=== PATIENT | female | born 1975 | race Caucasian/White ===

== ENCOUNTER → 2016-10-30 | Emergency (ER) | payer OTHER ==
[2016-10-30 16:39] VITALS: BP 125/65; PULSE 88; TEMP 98; BMI 28.9
--- NOTE | 2016-10-30 17:11 | PDOC ---
History of Present Illness - General Chief Complaint: Vaginal Sxs Stated Complaint: VAGINAL DISCHARGE/19 WKS Time Seen by Provider: 10/30/16 16:48 History Source: Patient Exam Limitations: No Limitations - History of Present Illness Initial Comments: CHIEF COMPLAINT: 41 y/o [id number], approximately 18 week female with LMP of 06/24/16 c/o clear vaginal discharge for the past 2 days. HISTORY OF PRESENT ILLNESS: The patient states that one time yesterday and once today she had some clear vaginal discharge. She states the discharge is not constant. She denies f/c, n/v/d, CP, SOB, abd pain, back pain, vaginal bleeding. Vital signs on arrival are within normal limits. HAND EXPANSION ENVELOPE MAKER is Dr. Bingham. REVIEW OF SYSTEMS: GENERAL/CONSTITUTIONAL: No fever/chills. No weakness. No weight change. HEAD, EYES, EARS, NOSE AND THROAT: No change in vision. No ear pain or discharge. No sore throat. CARDIOVASCULAR: No chest pain or shortness of breath. RESPIRATORY: No cough, wheezing, or hemoptysis. GASTROINTESTINAL: No abd pain, nausea, vomiting, diarrhea. +clear, watery vaginal discharge. GENITOURINARY: No dysuria, frequency, or change in urination. MUSCULOSKELETAL: No joint or muscle swelling or pain. No neck or back pain. SKIN: No rash or easy bruising. NEUROLOGIC: No headache, vertigo, loss of consciousness, or loss of sensation. PHYSICAL EXAM: GENERAL: The patient is awake, alert, and fully oriented, in no acute distress. She is well appearing, obviously gravid, in NAD or obvious discomfort. HEAD: Normal with no signs of trauma. ENT: Pupils equal, round and reactive to light, extraocular movements intact, sclera anicteric, conjunctiva clear. Neck supple. LUNGS: Clear to auscultation bilaterally. Normal excursion. No respiratory distress or use of accessory muscles. CV: RRR, S1/S2, no MRG. Cap refill < 2 sec. ABDOMEN: Soft, non-distended, non-tender even to deep palpation, no hepatomegaly or splenomegaly, no masses. VAGINAL: moderate amount of white/yellow watery vaginal discharge in vaginal vault. No foul odor. No blood noted. EXTREMITIES: Normal range of motion, no edema. NEUROLOGICAL: Normal speech, normal gait. CN II-XII grossly intact. PSYCH: Normal mood, normal affect. SKIN: Warm, dry, normal turgor, no rashes or lesions noted. Past History - Past Medical History Allergies/Adverse Reactions: Allergies Allergy/AdvReac Type Severity Reaction Status Date / Time No Known Drug Allergies Allergy Verified 10/30/16 16:39 Home Medications: Ambulatory Orders NK [No Known Home Medication] 10/30/16 - Surgical History Orthopedic Surgery: Yes (LEFT SHOULDER SX) - Reproductive History (#): 2 Para: 1 Cervical CA: No Dysfunctional Uterine Bleeding: No Ectopic : No Endometrial CA: No Polycystic Ovaries: No Tubal Ligation: No Spontaneous : 0 - Immunization History Td Vaccination: No TDAP Vaccination: No Immunization Up to Date: Yes - Psycho/Social/Smoking Cessation Hx Anxiety: No Suicidal Ideation: No Smoking History: Never smoked Have you smoked in the past 12 months: No Number of Cigarettes Smoked Daily: 0 Cigars Per Day: 0 Information on smoking cessation initiated: No Hx Alcohol Use: No Drug/Substance Use Hx: No Substance Use Type: None Hx Substance Use Treatment: No *Physical Exam - Vital Signs Last Vital Signs Temp Pulse Resp BP Pulse Ox 98 F 88 18 125/65 100 10/30/16 16:37 10/30/16 16:37 10/30/16 16:37 10/30/16 16:37 10/30/16 16:37 ED Treatment Course - LABORATORY CBC & Chemistry Diagram: 10/30/16 18:10 Medical Decision Making - Medical Decision Making A/P: 41 y/o afebrile female, approximately 18 weeks c/o vaginal discharge since yesterday. Plan is as follows: 1. Labs 2. UA 3. Transvaginal ultrasound to confirm cervical competency 4. Transabdominal ultrasound to confirm HR I am signing this patient out to my colleague: RILEY Harper In brief, this patient is being seen in the ED for a chief complaint of: vaginal discharge 18 weeks I have completed the initial assessment interview note and have ordered: labs, UA, transvaginal and abd ultrasound I have reviewed the following results: none Pending results are: all Please call the HAND EXPANSION ENVELOPE MAKER: Zachery Plan for disposition is as follows: Pending *DC/Admit/Observation/Transfer Diagnosis at time of Disposition: Vaginal discharge during in second trimester - Discharge Dispostion Condition at time of disposition: Good - Referrals Referrals: Eddy Bingham MD [Staff Physician] -
--- NOTE | 2016-10-30 18:04 | PDOC ---
*Physical Exam - Vital Signs Last Vital Signs Temp Pulse Resp BP Pulse Ox 98 F 88 18 125/65 100 10/30/16 16:37 10/30/16 16:37 10/30/16 16:37 10/30/16 16:37 10/30/16 16:37 ED Treatment Course - LABORATORY CBC & Chemistry Diagram: 10/30/16 18:10 Medical Decision Making - Medical Decision Making 10/30/16 18:04 Pt seen by the Advanced Practice Provider under my direct supervision Ancillary studies reviewed I agree with plan as outlined by the Advanced Practice Provider TAYLOR Hood *DC/Admit/Observation/Transfer Diagnosis at time of Disposition: Vaginal discharge during in second trimester - Discharge Dispostion Disposition: HOME Condition at time of disposition: Good - Referrals Referrals: Eddy Bingham MD [Staff Physician] - - Patient Instructions Printed Discharge Instructions: Managing Symptoms of Additional Instructions: follow up with your Event Designer as soon as possible return to the ER if vaginal bleeding > 2 pads/ hour, pelvic pain, loss of amniotic fluid, fever
[2016-10-30 18:30] LABS: BASOPHIL 0.3 % (0-2.0); EOSINOPHIL 1.1 % (0-4.5); MCH 31.6 pg (25.7-33.7); MEAN CELL VOLUME 92.8 fl (80-96); MEAN PLT VOLUME 9.3 fl (7.5-11.1); NEUTROPHILS 72.9 % (42.8-82.8); PLATELET COUNT 246 K/MM3 (134-434); RDW 13.8 % (11.6-15.6); WHITE BLOOD COUNT 10.9 K/mm3 (4.0-10.0)
--- NOTE | 2016-10-30 19:18 | PDOC ---
[id number] 100 10/30/16 16:37 10/30/16 16:37 10/30/16 16:37 10/30/16 16:37 10/30/16 16:37 - Physical Exam General Appearance: Yes: Appropriately Dressed Respiratory/Chest: positive: Lungs Clear, Normal Breath Sounds Cardiovascular: positive: Regular Rhythm, Regular Rate Gastrointestinal/Abdominal: positive: Normal Bowel Sounds, Soft ED Treatment Course - LABORATORY CBC & Chemistry Diagram: 10/30/16 18:10 - ADDITIONAL ORDERS Additional order review: 10/30/16 18:10 RBC 3.64 MCV 92.8 MCHC 34.0 RDW 13.8 MPV 9.3 Neutrophils % 72.9 Lymphocytes % 17.8 D Monocytes % 7.9 Eosinophils % 1.1 D Basophils % 0.3 Medical Decision Making - Medical Decision Making 10/31/16 22:02 patient reassured. u/s report reviewed " single viable IUP, closed cervix, placenta low lying." *DC/Admit/Observation/Transfer Diagnosis at time of Disposition: Vaginal discharge during in second trimester - Discharge Dispostion Disposition: HOME Condition at time of disposition: Good - Referrals Referrals: Eddy Bingham MD [Staff Physician] - - Patient Instructions Printed Discharge Instructions: Managing Symptoms of Additional Instructions: follow up with your Breast Splitter as soon as possible return to the ER if vaginal bleeding > 2 pads/ hour, pelvic pain, loss of amniotic fluid, fever - Post Discharge Activity
== END | disposition home or self-care (01) ==
LOC: JER 16:31
DX: O26.892 Other specified pregnancy related conditions, second trimester (principal); N89.8 Other specified noninflammatory disorders of vagina; Z3A.18 18 weeks gestation of pregnancy
CPT/HCPCS: 36415; 76815-TC; 76817-TC; 85025; 86850; 86900; 86901; 99282-25

== ENCOUNTER 2017-03-19 18:10 | Inpatient (IN) | payer OTHER ==
[2017-03-19 19:00] VITALS: BMI 33.0
[2017-03-19] MEDS ORDERED: BUTORPHANOL TARTRATE 1 MG/ML VIAL IVPUSH PRN (19:01)
[2017-03-19] MEDS ORDERED: PROMETHAZINE HCL 25 MG/1 ML VIAL IVPUSH PRN (19:02)
[2017-03-19] MEDS ORDERED: DEXTROSE 5%-LACTATED RINGERS 1,000 ML IV SCH (19:15)
[2017-03-19 20:07] LABS: BASOPHIL 0.1 % (0-2.0); MCHC 33.2 g/dl (32.0-36.0); MEAN CELL VOLUME 93.4 fl (80-96); MEAN PLT VOLUME 10.1 fl (7.5-11.1); PLATELET COUNT 256 K/MM3 (134-434); RDW 14.2 % (11.6-15.6); WHITE BLOOD COUNT 15.9 K/mm3 (4.0-10.0)
[2017-03-19 20:26] LABS: INR 1.03 (0.82-1.09); PROTHROMBIN TIME (PATIENT) 11.3 SEC (9.98-11.88)
[2017-03-19 20:29] LABS: ACTIVATED PTT 31.2 SECONDS (26.9-34.4)
[2017-03-19 20:43] LABS: ANION GAP 11 (8-16); CALCIUM 9.3 mg/dL (8.5-10.1); CO2 19 mmol/L (21-32); CREATININE 0.5 mg/dL (0.55-1.02); GLUCOSE,RANDOM 101 mg/dL (74-106)
--- NOTE | 2017-03-19 20:47 | HP ---
Past Medical History - Admission Chief Complaint: Labor pain History of Present Illness: 41 yo @ 39 weeks gestation, EDC 03/23/17, admitted for labor pain. History Source: Patient Limitations to Obtaining History: No Limitations - Past Medical History ...: 3 ...Para: 1 ...Term: 1 ...: 0 ...Spon : 1 ...Induced : 0 ...Multiple Gestation: 0 ...LMP: 06/24/16 ... Weeks Gestation by Dates: 38.2 ...EDC by Dates: 03/31/17 ...EDC by Sono: 03/23/17 - Past Surgical History Past Surgical History: Yes: None Hx Myomectomy: No Hx Transabdominal Cerclage: No - Smoking History Smoking history: Never smoked Have you smoked in the past 12 months: No Aproximately how many cigarettes per day: 0 - Alcohol/Substance Use Hx Alcohol Use: No History of Substance Use: reports: None - Social History Usual Living Arrangement: Yes: Alone History of Recent Travel: No Home Medications - Allergies Allergies/Adverse Reactions: Allergies Allergy/AdvReac Type Severity Reaction Status Date / Time No Known Drug Allergies Allergy Verified 03/19/17 19:01 - Home Medications Home Medications: Ambulatory Orders Ferrous Sulfate 1 tab PO DAILY 03/19/17 Vit/Iron Fumarate/FA [ Tablet] 1 tab PO DAILY 03/19/17 Family Disease History - Family Disease History Family History: Unremarkable Review of Systems - Review of Systems Constitutional: reports: No Symptoms Eyes: reports: No Symptoms HENT: reports: No Symptoms Neck: reports: No Symptoms Cardiovascular: reports: No Symptoms Respiratory: reports: No Symptoms Gastrointestinal: reports: No Symptoms Genitourinary: reports: Pain Breasts: reports: No Symptoms Reported Musculoskeletal: reports: No Symptoms Integumentary: reports: No Symptoms Neurological: reports: No Symptoms Endocrine: reports: No Symptoms Hematology/Lymphatic: reports: No Symptoms Psychiatric: reports: No Symptoms Pain Intensity: 7 Physical Exam - Maternity Vital Signs: Vital Signs Temperature 97.6 F 03/19/17 18:30 Pulse Rate 104 H 03/19/17 20:00 Respiratory Rate 20 03/19/17 20:00 Blood Pressure 137/83 03/19/17 20:00 O2 Sat by Pulse Oximetry (%) Constitutional: Yes: Well Nourished Eyes: Yes: Conjunctiva Clear HENT: Yes: Atraumatic Neck: Yes: Supple Cardiovascular: Yes: Regular Rate and Rhythm Lungs: Clear to auscultation - Abdominal Exam/OB Number of Fetuses: Single Presentation: Vertex Contractions: Yes Regularity: Regular Intensity: Moderate - Vaginal Exam/OB Dilatation (cm): 5 Effacement (%): 90 Amniotic Membrane Status: Intact Station: -2 - Physical Exam Musculoskeletal: Yes: WNL Extremities: Yes: WNL Integumentary: Yes: WNL ...Motor Strength: WNL Psychiatric: Yes: Alert, Oriented - Labs Lab Results: CBC, BMP 03/19/17 19:30 Assessment/Plan Active labor Admit to L&D Analgesia as needed Anticipate
[2017-03-19] MEDS: D5W-LR W/ 20 UNITS OXYTOCIN 1,000 ML IV SCH (21:51)
[2017-03-19] MEDS ORDERED: BENZOCAINE 28 GM HEMORRHOIDAL OINTMENT TP PRN (22:07)
[2017-03-19] MEDS ORDERED: METHYLERGONOVINE MALEATE 0.2 MG/1 ML AMP IM PRN (22:07)
[2017-03-19] MEDS ORDERED: WITCH HAZEL 50% (TUCKS) 40 PAD/JAR PAD TP PRN (22:07)
[2017-03-19] MEDS ORDERED: BENZOCAINE 20% 57 GM BOTTLE TP PRN (22:07)
[2017-03-19] MEDS ORDERED: BISACODYL 10 MG SUPP.RECT RC PRN (22:07)
--- NOTE | 2017-03-19 22:13 | PN ---
Delivery - Delivery Vaginal Delivery: Spontaneous Type of Anesthesia: Local Episiotomy/Laceration: Midline EBL (cc): 300 Delivery, Single - Feeding Plan Initial Plan: Exclusive throughout hospitalization Remarks - Remarks Remarks: Normal spontaneous vaginal delivery of a live infant girl over midline episiotomy. Nose / Oropharynx suctioned @ perineum. Nuchal cord x 4 clamped and cut. + Meconium. Baby handed to Recycling Or Rubbish Collector Placenta expelled spontaneously intact. Midline episiotomy repaired with 2.0 Chromic in layers.
--- NOTE | 2017-03-19 22:17 | DS ---
Physical Exam-CARDIOLOGY ASSOCIATE Vital Signs: Vital Signs Temperature 97.6 F 03/19/17 18:30 Pulse Rate 109 H 03/19/17 21:00 Respiratory Rate 20 03/19/17 21:00 Blood Pressure 136/86 03/19/17 21:00 O2 Sat by Pulse Oximetry (%) Constitutional: Yes: Well Nourished Eyes: Yes: Conjunctiva Clear HENT: Yes: Atraumatic Neck: Yes: Supple, Trachea Midline Cardiovascular: Yes: Regular Rate and Rhythm Respiratory: Yes: Regular, CTA Bilaterally Gastrointestinal: Yes: Normal Bowel Sounds External Genitalia: Yes: Normal Vaginal Exam: Yes: Normal Cervix: Yes: Normal Uterus: Yes: Firm ....Post : Yes: Uterus firm, Moderate lochia serosa Breast(s): Yes: WNL Musculoskeletal: Yes: WNL Extremities: Yes: WNL Neurological: Yes: Alert, Oriented ...Motor Strength: WNL Psychiatric: Yes: Alert, Oriented Labs: CBC, BMP 03/19/17 19:30 03/19/17 19:30 Delivery - Delivery Vaginal Delivery: Spontaneous Type of Anesthesia: Local Episiotomy/Laceration: Midline EBL (cc): 300 Delivery, Single - Feeding Plan Initial Plan: Exclusive throughout hospitalization Discharge Summary Reason For Visit: ADMIT FOR LABOR Current Active Problems Status post normal vaginal delivery (Acute) Procedures: Principal: Noormal spontaneous vaginal delivery Hospital Course: Routine care Condition: Good - Instructions Diet, Activity, Other Instructions: Regular diet No douching, no sexual intercourse x 6 weeks. F/U in clinic in 6 weeks Disposition: HOME - Home Medications Comprehensive Discharge Medication List: Ambulatory Orders Ferrous Sulfate 1 tab PO DAILY 03/19/17 Vit/Iron Fumarate/FA [ Tablet] 1 tab PO DAILY 03/19/17
[2017-03-20] MEDS: D5W-LR W/ 20 UNITS OXYTOCIN 1,000 ML IV SCH ×2 (02:20→22:15)
[2017-03-20] MEDS: IBUPROFEN 600 MG TABLET (FP) PO PRN (02:48)
[2017-03-20] MEDS: ACETAMINOPHEN 325 MG TABLET (FP) PO PRN (02:48)
[2017-03-20 08:54] LABS: BASOPHIL 0.1 % (0-2.0); EOSINOPHIL 0.1 % (0-4.5); MCHC 33.2 g/dl (32.0-36.0); MEAN CELL VOLUME 93.5 fl (80-96); MEAN PLT VOLUME 9.9 fl (7.5-11.1); NEUTROPHILS 81.7 % (42.8-82.8); PLATELET COUNT 237 K/MM3 (134-434); RDW 14.3 % (11.6-15.6); WHITE BLOOD COUNT 19.7 K/mm3 (4.0-10.0)
[2017-03-20] MEDS: FERROUS SO4 325 MG TABLET (FP) PO SCH ×3 (08:58→17:09)
[2017-03-20] MEDS: PRENATAL VITAMINS W/ FOLIC ACID TABLET (FP) PO SCH (08:59)
[2017-03-20] MEDS ORDERED: DIPHTH,PERTUSS(ACELL),TET 0.5 ML DISP.SYRIN IM ONE (10:00)
--- NOTE | 2017-03-20 19:29 | PN ---
Post Progress Note - Subjective Subjective: 41 yo status post vaginal delivery seen and evaluated. Doing well. Post Day: 1 Type of Delivery: Vital Signs: Vital Signs Temperature 98.2 F 03/20/17 17:36 Pulse Rate 86 03/20/17 17:36 Respiratory Rate 20 03/20/17 17:36 Blood Pressure 126/70 03/20/17 17:36 O2 Sat by Pulse Oximetry (%) 100 03/19/17 23:00 Breast Exam: Yes: Soft Uterus: Yes: Fundus Firm Abdomen/GI: Yes: Abdomen soft Lochia: Yes: Rubra Lochia, amount: Moderate Extremities: Yes: Calves non-tender Perineum: Yes: Intact Activity: Ambulating - Labs Labs: CBC WBC 19.7 K/mm3 (4.0-10.0) H 03/20/17 07:35 RBC 3.60 M/mm3 (3.60-5.2) 03/20/17 07:35 Hgb 11.2 GM/dL (10.7-15.3) 03/20/17 07:35 Hct 33.6 % (32.4-45.2) 03/20/17 07:35 MCV 93.5 fl (80-96) 03/20/17 07:35 MCH 31.0 pg (25.7-33.7) 03/20/17 07:35 MCHC 33.2 g/dl (32.0-36.0) 03/20/17 07:35 RDW 14.3 % (11.6-15.6) 03/20/17 07:35 Plt Count 237 K/MM3 (134-434) 03/20/17 07:35 MPV 9.9 fl (7.5-11.1) 03/20/17 07:35 Neutrophils % 81.7 % (42.8-82.8) 03/20/17 07:35 Lymphocytes % 11.0 % (8-40) D 03/20/17 07:35 Monocytes % 7.1 % (3.8-10.2) D 03/20/17 07:35 Eosinophils % 0.1 % (0-4.5) D 03/20/17 07:35 Basophils % 0.1 % (0-2.0) 03/20/17 07:35 Assessment/Plan Status post vaginal delivery Stable Routine care
[2017-03-20] MEDS ORDERED: SENNOSIDES/DOCUSATE COMBO (SENNA PLUS) TABLET (UD) PO PRN (22:00)
[2017-03-21] MEDS: ACETAMINOPHEN 325 MG TABLET (FP) PO PRN (06:36)
[2017-03-21] MEDS: IBUPROFEN 600 MG TABLET (FP) PO PRN (06:37)
--- NOTE | 2017-03-21 07:18 | PN ---
Progress Note (short form) - Note Progress Note: ppd 2 no c/o voids ok CBC, BMP 03/20/17 07:35 03/19/17 19:30 abdomen soft, uterus firm, non tender lochia mild no calf tenderness plan d/c home, follow up h care 4 weeks instruction given
[2017-03-21 08:08] VITALS: BP 117/75; PULSE 76; TEMP 98.3
[2017-03-21] MEDS ORDERED: diphenhydrAMINE HCL 25 MG CAPSULE (FP) PO ONE (08:30)
[2017-03-21] MEDS: PRENATAL VITAMINS W/ FOLIC ACID TABLET (FP) PO SCH (09:08)
[2017-03-21] MEDS: FERROUS SO4 325 MG TABLET (FP) PO SCH ×2 (09:08→12:16)
--- NOTE | 2017-03-25 12:56 | PATH ---
Surgical Pathology Report Patient Name: DHAVAL ANN Med. Rec. #: [id number] /Age/Gender: 1975 (Age: 41) / F Account: [id number] Location: [facility] OBS/FACILITY ATTENDANT Taken: 03/19/2017 Received: 03/20/2017 Reported: 03/25/2017 Physicians: Janine Yadav M.D. Specimen(s) Received PLACENTA Clinical History , at 39.3 weeks, cord x4 around the neck Final Diagnosis PLACENTA, DELIVERY: INTACT THIRD TRIMESTER PLACENTA WITH FOCAL FIBRIN THROMBUS, MILD INCREASE IN PREVILLOUS, PERIVILLOUS, AND PRECHORIONIC FIBRIN DEPOSITION, THREE VESSEL UMBILICAL CORD, AND PLACENTAL MEMBRANES WITH MILD MECONIUM HISTOCYTOSIS. Electronically Signed Warren Blas M.D. Gross Description The specimen is received fresh, labeled "placenta" and is a 434 gram, 22.0 x 15.5 x 2.5 cm. placenta with attached membranes and umbilical cord. The attached membranes are mcgrath-green, meconium stained, translucent and insert marginally. The umbilical cord measures 30 cm in length and averages 0.9 cm in diameter. The cord inserts eccentrically, 5 cm to the nearest margin. No true knots or strictures are identified. Cut surface of the umbilical cord reveals 3 vessels. The surface is beltre-green, meconium stained with moderate fibrin deposition and appropriate caliber vessels. The maternal surface is red-brown and intact. Sectioning reveals a 1.2 cm greatest dimension mcgrath intraparenchymal lesion. The remaining placental parenchyma is red-brown and spongy. Masonry Teacher sections are submitted in 4 cassettes as follows: 1-membrane roll and umbilical cord; 2-lesion; 4-6-dgde-thickness sections of placenta. 03/21/2017 saudi03/21/2017
== END 2017-03-21 11:45 | disposition home or self-care (01) | DRG 775 ==
LOC: JDEL 18:10 → JLDR 18:30 → J3W 03-20 00:22
PROVIDERS: ADMIT Obstetrics & Gynecology; ATTEND Obstetrics & Gynecology
PROC: 10E0XZZ Delivery of Products of Conception, External Approach (ICD-10-PCS; principal; 2017-03-19)
PROC: 0W8NXZZ Division of Female Perineum, External Approach (ICD-10-PCS; 2017-03-19)
PROC: 4A1HXCZ Monitoring of Products of Conception, Cardiac Rate, External Approach (ICD-10-PCS; 2017-03-19)
DX: O77.0 Labor and delivery complicated by meconium in amniotic fluid (principal); O69.81X0 Labor and delivery complicated by cord around neck, without compression, not applicable or unspecified; Z3A.39 39 weeks gestation of pregnancy; Z37.0 Single live birth
CPT/HCPCS: 36415; 59409; 80048; 85025; 85610; 85730; 86593; 86850; 86900; 86901; 88307-TC; 90715

== ENCOUNTER 2017-06-10 05:00 | Day surgery (SDC) | payer OTHER ==
[2017-06-04 14:07] VITALS: BMI 28.1
[2017-06-10] MEDS ORDERED: PROPOFOL 20 ML ONE ×2 (09:45)
[2017-06-10] MEDS ORDERED: fentaNYL CITRATE 250 MCG/5 ML VIAL ONE (09:45)
[2017-06-10] MEDS ORDERED: MIDAZOLAM HCL 2 MG/2 ML SINGLE DOSE VIAL ONE (09:45)
[2017-06-10] MEDS ORDERED: ROCURONIUM BROMIDE 50 MG/5 ML VIAL ONE (09:45)
[2017-06-10] MEDS ORDERED: KETOROLAC TROMETHAMINE 30 MG/1 ML VIAL ONE (14:42)
[2017-06-10] MEDS ORDERED: LIDOCAINE HCL/PF 2% SDV 5ML VIAL ONE (14:42)
[2017-06-10] MEDS ORDERED: DEXAMETHASONE SOD PHOSPHATE 4 MG/1 ML VIAL ONE (14:42)
[2017-06-10] MEDS ORDERED: LIDOCAINE HCL 2% JELLY (5 ML/TUBE) ONE (14:42)
[2017-06-10] MEDS ORDERED: NEOSTIGMINE METHYLSULFATE 0.5 MG/ML - 10 ML MDV ONE (15:22)
[2017-06-10] MEDS ORDERED: GLYCOPYRROLATE 0.2 MG/1 ML VIAL ONE (15:22)
--- NOTE | 2017-06-10 15:42 | HP ---
Past Medical History - Primary Care Physician PCP:: Eddy Bingham - Admission Chief Complaint: voluntary sterlization History of Present Illness: 42 yo f with wants BTL, risks discussed , ulternatives discussed admitted for laparoscopic tubal cauterization History Source: Patient Limitations to Obtaining History: No Limitations - Past Medical History ...: 4 ...Para: 4 - Past Surgical History Past Surgical History: Yes: None Hx Myomectomy: No Hx Transabdominal Cerclage: No - Smoking History Smoking history: Never smoked Have you smoked in the past 12 months: No Aproximately how many cigarettes per day: 0 - Alcohol/Substance Use Hx Alcohol Use: No History of Substance Use: reports: None - Social History History of Recent Travel: No Home Medications - Allergies Allergies/Adverse Reactions: Allergies Allergy/AdvReac Type Severity Reaction Status Date / Time No Known Drug Allergies Allergy Verified 03/19/17 19:01 - Home Medications Home Medications: Ambulatory Orders Ferrous Sulfate 1 tab PO DAILY 03/19/17 Vit/Iron Fumarate/FA [ Tablet] 1 tab PO DAILY 03/19/17 Ibuprofen [Motrin -] 600 mg PO QID #28 tablet 03/21/17 Acetaminophen [Tylenol -] 500 mg PO Q4H 06/10/17 Review of Systems - Review of Systems Constitutional: reports: No Symptoms Eyes: reports: No Symptoms HENT: reports: No Symptoms Neck: reports: No Symptoms Cardiovascular: reports: No Symptoms Respiratory: reports: No Symptoms Gastrointestinal: reports: No Symptoms Genitourinary: reports: No Symptoms Breasts: reports: No Symptoms Reported Musculoskeletal: reports: No Symptoms Integumentary: reports: No Symptoms Neurological: reports: No Symptoms Endocrine: reports: No Symptoms Hematology/Lymphatic: reports: No Symptoms Psychiatric: reports: No Symptoms Physical Exam-MOVERS Vital Signs: Vital Signs Temperature 98.4 F 06/10/17 09:28 Pulse Rate 82 06/10/17 09:28 Respiratory Rate 20 06/10/17 09:28 Blood Pressure 114/69 06/10/17 09:28 O2 Sat by Pulse Oximetry (%) 100 06/10/17 09:28 Constitutional: Yes: Well Nourished, No Distress, Calm, Obese Eyes: Yes: WNL, Conjunctiva Clear, EOM Intact HENT: Yes: WNL, Atraumatic, Normocephalic Neck: Yes: WNL, Supple, Trachea Midline Cardiovascular: Yes: WNL, Regular Rate and Rhythm Respiratory: Yes: WNL, Regular, CTA Bilaterally Gastrointestinal: Yes: WNL ...Rectal Exam: Yes: WNL Renal/: Yes: WNL External Genitalia: Yes: Normal Vaginal Exam: Yes: Normal Cervix: Yes: Normal Uterus: Yes: Normal Adnexa: Normal: Left, Right Breast(s): Yes: WNL Musculoskeletal: Yes: WNL Extremities: Yes: WNL Integumentary: Yes: WNL Neurological: Yes: WNL, Alert, Oriented ...Motor Strength: WNL Psychiatric: Yes: WNL, Alert, Oriented Problem List - Problem (1) Sterilization Code(s): Z30.2 - ENCOUNTER FOR STERILIZATION Assessment/Plan laparoscopic bilateral tubal fulgration
[2017-06-10] MEDS ORDERED: IBUPROFEN 600 MG TABLET (FP) PO PRN (15:43)
[2017-06-10] MEDS ORDERED: ONDANSETRON 4 MG/2 ML VIAL IVPUSH PRN (15:43)
[2017-06-10] MEDS ORDERED: oxyCODONE HCL 5 MG TABLET PO PRN (15:43)
[2017-06-10] MEDS ORDERED: IBUPROFEN 800 MG/8 ML IJ IVPB PRN (15:43)
[2017-06-10] MEDS ORDERED: ELECTROLYTE-148 SOLN 1,000 ML IV SCH (15:45)
[2017-06-10 16:38] VITALS: TEMP 98
[2017-06-10 17:47] VITALS: BP 132/71; PULSE 70
--- NOTE | 2017-06-11 10:01 | OP ---
DATE OF OPERATION: 06/10/2017 PREOPERATIVE DIAGNOSIS: Voluntary sterilization. POSTOPERATIVE DIAGNOSIS: Voluntary sterilization. PROCEDURE: Laparoscopic bilateral tubal fulguration. SURGEON: Eddy Bingham M.D. ANESTHESIA: General. ESTIMATED BLOOD LOSS: 10 mL. FINDINGS: Both tubes and ovaries and uterus normal. OPERATION: Patient was taken to operating room under adequate general anesthesia and placed in dorsal lithotomy position. Examination under anesthesia revealed the external genitalia to be normal. Vagina was normal. Cervix clean, no gross lesion. Uterus normal size. Adnexa, no masses palpable. Then with a weighted speculum in the vagina, anterior lip of cervix was grasped with single-toothed tenaculum. Uterine cavity was sounded to 8 cm. Then Hulka was introduced into intrauterine cavity for manipulation. Lopez was inserted. Patient placed in dorsal lithotomy position. Prepped and draped for a pelviscopy. A small infraumbilical skin incision was made, Veress needle was introduced, pneumoperitoneum established. A 5-mm trocar was introduced through the umbilical area, and then the scope was introduced, and under direct vision a 5-mm trocar was introduced through the suprapubic area. Visualization of both ovaries appeared to be normal. No cul-de-sac lesion. Both tubes were normal. Uterus was normal size. Bladder was normal. Upper abdomen was normal. Then right tube was grasped with a bipolar cautery and cauterized in 3 portions, 2 cm apart. The same procedure repeated for opposite tube. Visualization of both tubes show adequate cauterization, no bleeding. Abdomen was emptied of all the gases. Suprapubic and infraumbilical skin incisions were closed with interrupted suture of 3-0 Biosyn, and the skin was closed with 4-0 Biosyn interrupted suture. Patient tolerated procedure well, left the OR in good condition. EDDY BINGHAM M.D. 1 /[id number]
== END 2017-06-10 17:47 | disposition home or self-care (01) ==
LOC: JASU-SURG 05:00
PROVIDERS: ATTEND Obstetrics & Gynecology
PROC: 0U574ZZ Destruction of Bilateral Fallopian Tubes, Percutaneous Endoscopic Approach (ICD-10-PCS; principal; 2017-06-10 11:00)
DX: Z30.2 Encounter for sterilization (principal)
CPT/HCPCS: 84703; 94760

== ENCOUNTER → 2025-04-20 | Day surgery (SDC) | payer OTHER | END | disposition home or self-care (01) | LOC: JRADUS-SUR 09:51 → JMAMMO-SUR 09:51 | PROVIDERS: ATTEND Internal Medicine Pulmonary Disease | PROC: 0H9T3ZX Drainage of Right Breast, Percutaneous Approach, Diagnostic (ICD-10-PCS; principal; 2025-04-20) | DX: D24.1 Benign neoplasm of right breast (principal) | CPT/HCPCS: 19083; C1739; 76942-TC; 77065-TC; 87899; A4648 ==